=== PATIENT | female | born 1965 | race Caucasian/White ===

== ENCOUNTER 2017-11-18 04:10 | Emergency (ER) | payer SELFPAY ==
[~2017-11-18] VITALS: Ht 154.9 cm; Wt 90.7 kg
[2017-11-18 04:27] VITALS: BP 150/88
--- NOTE | 2017-11-18 04:53 | NUR ---
CAME IN WITH THE C/O COUGH SINCE YESTERDAY.
--- NOTE | 2017-11-18 05:00 | NUR ---
Patient being evaluated by physician
[2017-11-18 05:58] VITALS: BP 138/81
--- NOTE | 2017-11-18 05:58 | NUR ---
Patient discharged with v/s stable. Written and verbal after care instructions given and explained BY DR. ALLEN. Patient alert, oriented and verbalized understanding of instructions. Ambulatory with steady gait. All questions addressed prior to discharge. ID band removed. Patient advised to follow up with PMD. Rx AUGMENTIN 875MG.PROMETHAZINE DM 6.25MG. of given. Patient educated on indication of medication including possible reaction and side effects. Opportunity to ask questions provided and answered.
== END 2017-11-18 05:58 | disposition home or self-care (01) ==
LOC: MED 04:10
DX: J20.9 Acute bronchitis, unspecified (principal)
CPT/HCPCS: 99283

== ENCOUNTER 2017-11-19 20:13 | Emergency (ER) | payer SELFPAY ==
[~2017-11-19] VITALS: Ht 154.9 cm; Wt 90.7 kg
[2017-11-19 20:41] VITALS: BP 146/85
--- NOTE | 2017-11-19 20:47 | NUR ---
EKG COMPLETED IN [facility] BY PEDRITO CRAWLEY; GIVEN TO ER MD DR ALLEN
--- NOTE | 2017-11-19 20:49 | NUR ---
PT PROVIDED URINE CUP
--- NOTE | 2017-11-19 20:51 | NUR ---
pt to lobby awaiting room for MSE. VSS.
--- NOTE | 2017-11-19 23:30 | NUR ---
PATIENT PRESENTS TO ED WITH CP W/ COUGH X 2 DAYS; PT WAS HERE YDAY AND WAS DX W/ BRONCHITIS; PT RETURN TO ER D/T CONSTANT PAIN WHEN COUGH; PT DENIES N/V/D; SKIN IS PINK/WARM/DRY; AAOX4 WITH EVEN AND STEADY GAIT; LUNGS CLEAR BL; HR EVEN AND REGULAR; PT DENIES ANY PATIENT STATES PAIN OF 4/10 AT THIS TIME; VSS; PATIENT POSITIONED FOR COMFORT; HOB ELEVATED; BEDRAILS UP X2; BED DOWN. ER MD MADE AWARE OF PT STATUS.
--- NOTE | 2017-11-19 23:33 | NUR ---
Patient to OF4. RN evaluating patient.
[2017-11-20] MEDS ORDERED: NACL 0.9% 1,000 ML IV ONE (00:55)
[2017-11-20] MEDS ORDERED: KETOROLAC 30 MG/ML VIAL IVP ONE (00:55)
[2017-11-20] MEDS ORDERED: cefTRIAXone 1,000 MG VIAL ONE (01:14)
--- NOTE | 2017-11-20 01:29 | NUR ---
Patient appears to be resting comfortably in bed. Vital Signs within normal limits. Respirations even and unlabored.
--- NOTE | 2017-11-20 01:37 | NUR ---
IV removed, catheter intact and site benign. Applied folded 4x4 gauze and tape to stop bleeding.
[2017-11-20 01:46] VITALS: BP 146/85
--- NOTE | 2017-11-20 01:46 | NUR ---
Patient discharged with v/s stable. Written and verbal after care instructions given and explained. Patient verbalized understanding. Ambulatory with steady gait. All questions addressed prior to discharge. Advised to follow up with PMD. DISCHARGED BY DR ALLEN
== END 2017-11-20 01:46 | disposition home or self-care (01) ==
LOC: MED 20:13
DX: J20.9 Acute bronchitis, unspecified (principal)
CPT/HCPCS: 96365; 96375; 99284; J0696; J1885; J7030; J7060

== ENCOUNTER 2017-11-21 03:30 | Emergency (ER) | payer SELFPAY ==
[~2017-11-21] VITALS: Ht 157.5 cm; Wt 98.1 kg
[2017-11-21 03:45] VITALS: BP 158/85
--- NOTE | 2017-11-21 04:04 | NUR ---
52/F CAME IN WITH C/O RT BREAST PAIN, ACUTE ONSET, NO TRAUMA/INJURY. DENIES DISCHARGE . PT STATES "IT HURTS WHEN I COUGH OR LAY DOWN ON IT" PT REPORTS SHE WAS SEEN YESTERDAY IN ER, DX: BRONCHITIS, GIVEN ATB RX. PT REPORTS SHE IS TAKING RX AT HOME, REPORTS RELIEF OF SYMPTOMS. DENIES OTHER PMH/RX/OTC
--- NOTE | 2017-11-21 06:00 | NUR ---
Patient appears to be resting comfortably in bed. Vital Signs within normal limits. Respirations even and unlabored.
[2017-11-21 06:58] VITALS: BP 115/71
== END 2017-11-21 06:45 | disposition home or self-care (01) ==
LOC: MED 03:30
DX: N64.4 Mastodynia (principal)
CPT/HCPCS: 71010; 99283; Q0092

== ENCOUNTER 2017-11-22 00:33 | Emergency (ER) | payer SELFPAY ==
[~2017-11-22] VITALS: Ht 154.9 cm; Wt 117.9 kg
[2017-11-22 00:34] VITALS: BP 116/81
--- NOTE | 2017-11-22 00:40 | NUR ---
TO LOBBY VIA W/C, VS STABLE NO BLEEDING AT THIS TIME, A/W FOR BED ERMD NOTED
--- NOTE | 2017-11-22 03:50 | NUR ---
52/F CAME IN W C/O UNCONTROLLED NOSEBLEED X 2300 YESTERDAY S/P FALL FROM BED AND HITTING NOSE ON . DENIES LOC, SMALL CUT NOTED ON LT INNER EYE, DENIES VISUAL DISTURBANCES, PHOTOSENSITIVITY, N/V, LIGHTHEADEDNESS/DIZZINESS. BLEEDING IN MODERATE AMOUNT, PT INSTRUCTED TO KEEP PRESSURE. DENIES ANY PAIN AT THIS TIME.
--- NOTE | 2017-11-22 05:00 | NUR ---
LESS BLEEDING NOTED, PT STABLE AT THIS TIME. RESTING ON CHAIR WITH NO ACUTE DISTRESS
[2017-11-22] MEDS: PHENYLEPHRINE 0.25% 15 ML BTL NS ONE ×2 (06:13→06:24)
[2017-11-22] MEDS ORDERED: PHENYLEPHRINE 1% 15 ML BTL NS ONE (06:18)
[2017-11-22 07:24] VITALS: BP 124/86
--- NOTE | 2017-11-22 07:24 | NUR ---
Patient discharged with v/s stable. Written and verbal after care instructions given and explained. Patient verbalized understanding. Ambulatory with steady gait. All questions addressed prior to discharge. Advised to follow up with PMD.
== END 2017-11-22 07:24 | disposition home or self-care (01) ==
LOC: MED 00:33
DX: R04.0 Epistaxis (principal); W06.XXXA Fall from bed, initial encounter; Y93.89 Activity, other specified; Y92.89 Other specified places as the place of occurrence of the external cause; Y99.8 Other external cause status
CPT/HCPCS: 99283

== ENCOUNTER 2017-11-25 04:05 | Emergency (ER) | payer SELFPAY ==
[~2017-11-25] VITALS: Ht 154.9 cm; Wt 100.0 kg
[2017-11-25 04:42] VITALS: BP 146/94
--- NOTE | 2017-11-25 05:47 | NUR ---
PT AMBULATED TO ER OF
--- NOTE | 2017-11-25 05:48 | NUR ---
PATIENT PRESENTS TO ED WITH CONGESTION X 1 DAY . PT DENIES N/V/D; SKIN IS PINK/WARM/DRY; AAOX4 WITH EVEN AND STEADY GAIT; LUNGS CLEAR BL; HR EVEN AND REGULAR; PT DENIES ANY FEVER, CP, OR COUGH AT THIS TIME; PATIENT STATES PAIN OF 0/10 AT THIS TIME; VSS; PATIENT POSITIONED FOR COMFORT; HOB ELEVATED; BEDRAILS UP X2; BED DOWN. ER MD MADE AWARE OF PT STATUS.
--- NOTE | 2017-11-25 07:28 | NUR ---
ASSUMED PATIENT CARE, AWAITING MSE BY PROVIDER. PATIENT UPDATED ACCORDINGLY.
[2017-11-25] MEDS ORDERED: DEXAMETHASONE 10 MG/ML VIAL IM ONE (07:45)
[2017-11-25] MEDS ORDERED: cefTRIAXone 1,000 MG in LIDOCAINE 1% ***ER ONLY *** 2.1 ML IM ONE (07:45)
[2017-11-25] MEDS ORDERED: ALBUTEROL SULFATE/IPRATROPIU 3 ML SOL IH ONE (07:45)
[2017-11-25] MEDS ORDERED: cefTRIAXone 1,000 MG VIAL ONE (08:13)
[2017-11-25 09:52] VITALS: BP 133/87
--- NOTE | 2017-11-25 09:53 | NUR ---
DISPO AND MEDICAL DECISION MAKING DC HOME WITH INSTRUCTIONS AND PRESCRIPTIONS. PATIENT VERBALIZING RELIEF FROM SYMPTOMS. VSWNL, NO DISTRESS.
== END 2017-11-25 09:53 | disposition home or self-care (01) ==
LOC: MED 04:05
DX: J11.1 Influenza due to unidentified influenza virus with other respiratory manifestations (principal); J40 Bronchitis, not specified as acute or chronic
CPT/HCPCS: 94640; 96372; 99284; J0696; J1100; J7620

== ENCOUNTER 2018-02-19 06:55 | Emergency (ER) | payer SELFPAY ==
[~2018-02-19] VITALS: Ht 154.9 cm; Wt 98.0 kg
[2018-02-19 06:57] VITALS: BP 152/90
--- NOTE | 2018-02-19 06:57 | NUR ---
Pt to room 3.
--- NOTE | 2018-02-19 07:05 | NUR ---
52 YO F BIB self w/ c/o difficulty breathing that began at 0530 this morning. A&O x 4. GCS 15. Pt denies past med hx. Pt denies pain at this time. Lung sounds clear bilaterally. Respirations even and unlabored. CMS intact. ER MD Palmer aware of pt status. Pt needs met at this time. Will continue to monitor.
--- NOTE | 2018-02-19 07:20 | NUR ---
O2 given because o2 saturation 93%. Will continue to monitor.
[2018-02-19 08:08] LABS: BASOPHILS # (AUTO) 0.4 K/uL (0.00-0.22); BASOPHILS % (AUTO) 4.9 % (0.0-2.0); EOSINOPHILS # (AUTO) 0.1 K/uL (0-0.4); EOSINOPHILS % (AUTO) 1.1 % (0.0-4.0); HEMATOCRIT 39.9 % (36-48); HEMOGLOBIN 12.7 g/dL (12.0-16.0); LYMPHOCYTES # (AUTO) 1.6 K/uL (2.5-16.5); LYMPHOCYTES % (AUTO) 21.3 % (20.5-51.1); MEAN CORPUSCULAR HEMOGLOBIN 25 pg (27-31); MEAN CORPUSCULAR HGB CONC 32 g/dL (33-37); MEAN CORPUSCULAR VOLUME 78.1 fL (80-94); MONOCYTES # (AUTO) 0.3 K/uL (0.8-1.0); NEUTROPHILS # (AUTO) 5.1 K/uL (1.8-7.7); NEUTROPHILS % (AUTO) 68.7 % (42.2-75.2); PLATELET COUNT (AUTO) 203 K/uL (140-450); RED BLOOD CELL COUNT(AUTO) 5.11 MIL/uL (4.20-5.40); WHITE BLOOD COUNT (AUTO) 7.5 K/uL (4.8-10.8)
[2018-02-19 08:16] LABS: ANION GAP 18.4 (8-16); CARBON DIOXIDE 22.7 mmol/L (21-32); CREATININE 0.7 mg/dL (0.6-1.3); POTASSIUM 4.1 mmol/L (3.5-5.1)
[2018-02-19 08:22] LABS: ALBUMIN 3.3 g/dL (3.4-5.0); TOTAL BILIRUBIN 0.3 mg/dL (0.0-1.0)
[2018-02-19] MEDS ORDERED: ALBUTEROL 0.083% 2.5 MG/3 ML NEBU INH ONE (08:35)
--- NOTE | 2018-02-19 08:42 | NUR ---
ADMITTING DX: DIFFICULTY BREATHIG HX: BRONCHITIS DENIES ASTHMA COPD CHF LOC AWAKE AND ALERT RESPONSIVE TO SECURITY INTERN VERBAL COMMANDS SKIN TONE PINK SITTING UP ON GURNEY EDUCATION PROVIDED TO PATIENT WITH ACKNOWLEDGEMENT ON HHN THERAPY AND RESPIRATORY DRUG HHN THERAPY GIVEN ORDERED ENCOURAGED PATIENT FOR INTERMITTENT DEEP BREATH AND COUGH TOLERATED THERAPY WELL WITHOUT ADVERSE REACTION NOTED PLACED PATIENT BACK ON SUPPLEMENTAL OXYGEN AT 2 LPM VIA NC
[2018-02-19] MEDS ORDERED: PIPERACILLIN/TAZOBACTAM 3.375 GM in DEXTROSE 5% 50 ML IV ONE (09:25)
[2018-02-19] MEDS ORDERED: VANCOMYCIN 1,000 MG in DEXTROSE 5% 250 ML IV ONE (09:25)
[2018-02-19 09:30] VITALS: BP 152/90
== END 2018-02-19 09:31 | disposition home or self-care (01) ==
LOC: MED 06:55
DX: J40 Bronchitis, not specified as acute or chronic (principal); R79.89 Other specified abnormal findings of blood chemistry
CPT/HCPCS: 36415; 71045; 80053; 83880; 85025; 94640; 99285; J7613; Q0092

== ENCOUNTER 2018-06-01 17:50 | Emergency (ER) | payer SELFPAY ==
[~2018-06-01] VITALS: Ht 157.5 cm; Wt 98.0 kg
[2018-06-01 18:12] VITALS: BP 157/88
[2018-06-01 20:28] VITALS: BP 148/89
== END 2018-06-01 20:28 | disposition home or self-care (01) ==
LOC: MED 17:50
DX: J20.9 Acute bronchitis, unspecified (principal)
CPT/HCPCS: 99283

== ENCOUNTER 2018-06-19 05:40 | Emergency (ER) | payer SELFPAY ==
[~2018-06-19] VITALS: Ht 157.5 cm; Wt 98.0 kg
[2018-06-19 05:43] VITALS: BP 125/87
--- NOTE | 2018-06-19 05:43 | NUR ---
to bed # 11 ambulatory, report given Linda Oneil
--- NOTE | 2018-06-19 06:00 | NUR ---
PT BIB SELF C/O SUDDEN ONSET OF SOB, RR EVEN AND UNLABORED, BL BS CLEAR THROUGHOUT. PT STATES SHE WAS SEEN IN ER LAST WEEK FOR BRONCHITIS WAS PRESCRIBED ABX AND COUGH SYRUP, STATES SHE HAD RELIEF BUT WOKE UP THIS AM W/ SOB. PT IS AWAKE , AND ACTING APPROPRIATE, SPEAKING FULL CLEAR SENTENCES. PMH BRONCHITIS NKDA
--- NOTE | 2018-06-19 06:25 | NUR ---
XRAY AT BEDSIDE.
--- NOTE | 2018-06-19 06:28 | NUR ---
DR BALLARD AT BEDSIDE EVALUATING PT.
[2018-06-19] MEDS ORDERED: methylPREDNISolone SS 125 MG in WATER STERILE 2 ML IV ONE (06:35)
[2018-06-19 06:55] LABS: BASOPHILS # (AUTO) 0.1 K/uL (0.00-0.22); BASOPHILS % (AUTO) 0.7 % (0.0-2.0); EOSINOPHILS # (AUTO) 0.1 K/uL (0-0.4); EOSINOPHILS % (AUTO) 1.4 % (0.0-4.0); HEMOGLOBIN 12.4 g/dL (12.0-16.0); LYMPHOCYTES # (AUTO) 2.3 K/uL (2.5-16.5); LYMPHOCYTES % (AUTO) 24.4 % (20.5-51.1); MEAN CORPUSCULAR HEMOGLOBIN 25 pg (27-31); MEAN CORPUSCULAR HGB CONC 32 g/dL (33-37); MEAN CORPUSCULAR VOLUME 76.7 fL (80-94); MONOCYTES # (AUTO) 0.5 K/uL (0.8-1.0); MONOCYTES % (AUTO) 5.2 % (1.7-9.3); NEUTROPHILS # (AUTO) 6.3 K/uL (1.8-7.7); NEUTROPHILS % (AUTO) 68.3 % (42.2-75.2); PLATELET COUNT (AUTO) 212 K/uL (140-450); RED BLOOD CELL COUNT(AUTO) 5.08 MIL/uL (4.20-5.40); RED CELL DISTRIBUTION WIDTH 16.8 % (11.6-13.7); WHITE BLOOD COUNT (AUTO) 9.3 K/uL (4.8-10.8)
[2018-06-19 07:12] LABS: ALBUMIN 3.4 g/dL (3.4-5.0); ANION GAP 14.8 (8-16); CARBON DIOXIDE 23.1 mmol/L (21-32); CREATININE 0.7 mg/dL (0.6-1.3); POTASSIUM 3.9 mmol/L (3.5-5.1); TOTAL BILIRUBIN 0.4 mg/dL (0.0-1.0)
--- NOTE | 2018-06-19 07:39 | NUR ---
REPORT RECIEVED FROM KRIS ALBARRAN, PT RESTING COMFORTABLY, NO C/O SOB OR PAIN AT THIS TIME, WILL CONTINUE TO MONITOR
[2018-06-19 08:28] VITALS: BP 138/98
--- NOTE | 2018-06-19 08:28 | NUR ---
Pt discharge instructions given with prescription of prednisone, information given regarding side effects of medication, vss, instructed to follow up with primary md, pt ambulates with
== END 2018-06-19 08:28 | disposition home or self-care (01) ==
LOC: MED 05:40
DX: R06.02 Shortness of breath (principal); R05 Cough
CPT/HCPCS: 36415; 71045; 80053; 82550; 82553; 83880; 84484; 85025; 85379; 93005; 96374; 99285; J2930; Q0092

== ENCOUNTER 2018-10-01 05:40 | Emergency (ER) | payer SELFPAY ==
[~2018-10-01] VITALS: Ht 157.5 cm; Wt 98.0 kg
[2018-10-01 05:44] VITALS: BP 141/96
--- NOTE | 2018-10-01 05:52 | NUR ---
PT AMBULATED TO ED BED 8, FLU SWAB DONE
--- NOTE | 2018-10-01 06:15 | NUR ---
53/F CAME IN ED, C/O PRODUCTIVE COUGH, X3 DAYS. PT STATED THAT SHE SHOWERED, LEFT HER HAIR WET, WENT TO WORK AND FELT AN EPISODE OF SORE THROAT, RUNNY NOSE, AND CONGESTION 4 DAYS AGO. LUNG SOUNDS CLEAR BL. AOX4, AMBULATORY, RR EVEN AND UNLABORED. DENIES MED HX, RX.
--- NOTE | 2018-10-01 06:44 | NUR ---
Patient being evaluated by physician at bedside.
[2018-10-01] MEDS ORDERED: KETOROLAC 30 MG/ML VIAL IM ONE (06:45)
[2018-10-01] MEDS ORDERED: cefTRIAXone 1,000 MG in LIDOCAINE MPF 1% - 5 mL VIAL 2.1 ML IM ONE (06:45)
[2018-10-01] MEDS ORDERED: cefTRIAXone 1,000 MG VIAL ONE (06:59)
[2018-10-01] MEDS ORDERED: LIDOCAINE 1% 50 ML ONE (07:00)
[2018-10-01 07:25] VITALS: BP 137/93
--- NOTE | 2018-10-01 07:25 | NUR ---
Patient discharged with v/s stable. Written and verbal after care instructions given and explained. Patient alert, oriented and verbalized understanding of instructions. Ambulatory with steady gait. All questions addressed prior to discharge. ID band removed. Patient advised to follow up with PMD. Rx of GUAIATUSSIN, NAPRSYN, AND AZIYTHROMYZIN given. Patient educated on indication of medication including possible reaction and side effects. Opportunity to ask questions provided and answered.
== END 2018-10-01 07:25 | disposition home or self-care (01) ==
LOC: MED 05:40
DX: J18.9 Pneumonia, unspecified organism (principal)
CPT/HCPCS: 36415; 71045; 87804; 96372; 99285; J0696; J1885; J2001; J7030; Q0092

== ENCOUNTER 2021-03-08 08:46 | Emergency (ER) | payer OTHER ==
[~2021-03-08] VITALS: Ht 162.6 cm; Wt 104.3 kg
[~2021-03-08 08:46] MED LIST: ASPI-1129 PO; ATOR10TA PO; BENA20TA PO; ERGO400T3 PO; FURO-570 PO; GLIP10TE PO; METF500T2 PO; METO25TE2 PO; PIOG15TA84 PO
[2021-03-08 08:48] VITALS: BP 150/100
[2021-03-08 09:31] LABS: BASOPHILS # (AUTO) 0.1 K/uL (0.00-0.22); BASOPHILS % (AUTO) 1.1 % (0.0-2.0); EOSINOPHILS # (AUTO) 0.1 K/uL (0-0.4); EOSINOPHILS % (AUTO) 1.6 % (0.0-4.0); HEMOGLOBIN 13.8 g/dL (12.0-16.0); LYMPHOCYTES % (AUTO) 23.7 % (20.5-51.1); MEAN CORPUSCULAR HEMOGLOBIN 30 pg (27-31); MEAN CORPUSCULAR HGB CONC 34 g/dL (33-37); MEAN CORPUSCULAR VOLUME 88.2 fL (80-94); MONOCYTES # (AUTO) 0.4 K/uL (0.8-1.0); MONOCYTES % (AUTO) 4.6 % (1.7-9.3); NEUTROPHILS # (AUTO) 5.9 K/uL (1.8-7.7); PLATELET COUNT (AUTO) 224 K/uL (140-450); RED BLOOD CELL COUNT(AUTO) 4.65 MIL/uL (4.20-5.40); RED CELL DISTRIBUTION WIDTH 14.5 % (11.6-13.7)
[2021-03-08 09:35] LABS: WHITE BLOOD COUNT (AUTO) 8.5 K/uL (4.8-10.8)
[2021-03-08] MEDS ORDERED: FUROSEMIDE 40 MG/4 ML VIAL IVP ONE (09:40)
[2021-03-08 09:43] LABS: ALBUMIN 3.7 g/dL (3.4-5.0); CREATININE 0.9 mg/dL (0.6-1.3); TOTAL BILIRUBIN 0.5 mg/dL (0.0-1.0)
[2021-03-08] MEDS ORDERED: cefTRIAXone 1,000 MG VIAL ONE (09:44)
[2021-03-08 09:47] LABS: ANION GAP 40.8 (8-16)
[2021-03-08] MEDS ORDERED: AZIT250T3 PO (10:32)
[2021-03-08 11:18] VITALS: BP 148/90
== END 2021-03-08 11:18 | disposition home or self-care (01) ==
LOC: MED 08:46
DX: J18.9 Pneumonia, unspecified organism (principal); I11.0 Hypertensive heart disease with heart failure; E11.9 Type 2 diabetes mellitus without complications; Z88.6 Allergy status to analgesic agent; Z79.899 Other long term (current) drug therapy
CPT/HCPCS: 36415; 71045; 80053; 83880; 84484; 85025; 85379; 87040; 93005; 96365; 96375; 99285; J0696; J1940; J7060

== ENCOUNTER 2021-05-31 02:11 | Emergency (ER) | payer OTHER ==
[~2021-05-31] VITALS: Ht 154.9 cm; Wt 108.0 kg
[~2021-05-31 02:11] MED LIST changes: +AZIT250T3 PO
[2021-05-31 02:18] VITALS: BP 108/76
--- NOTE | 2021-05-31 03:02 | NUR ---
55 Y/O FEMALE PT C/O DRY COUGH AND THROAT PAIN. PT STATES "I WOKE UP WITH A SCRATCHY THROAT AND DRY COUGH, AND A THROAT PAIN OF 8/10" . DENIES N/V/D; SKIN IS PINK/WARM/DRY; AAOX4 WITH EVEN AND STEADY GAIT; LUNGS CLEAR BL; HR EVEN AND REGULAR; PT DENIES ANY FEVER, CP, SOB, OR COUGH AT THIS TIME; PATIENT STATES PAIN OF 8/10 AT THIS TIME; VSS; PATIENT POSITIONED FOR COMFORT; HOB ELEVATED; BEDRAILS UP X2; BED DOWN. ER MD MADE AWARE OF PT STATUS. ALLERGY: ACETAMINOPHEN PMH: DENIES
--- NOTE | 2021-05-31 04:05 | NUR ---
COLLECTED STREP SWABS AND SENT TO LAB, HANDED TO CPT DONAVON
[2021-05-31] MEDS ORDERED: DEXAMETHASONE 4 MG/ML VIAL IM ONE (04:50)
[2021-05-31 05:05] VITALS: BP 108/76
== END 2021-05-31 05:05 | disposition home or self-care (01) ==
LOC: MED 02:11
DX: J02.9 Acute pharyngitis, unspecified (principal); E11.9 Type 2 diabetes mellitus without complications; I10 Essential (primary) hypertension; Z88.6 Allergy status to analgesic agent; Z79.82 Long term (current) use of aspirin; Z79.899 Other long term (current) drug therapy
CPT/HCPCS: 87081; 96372; 99283; J1100

== ENCOUNTER 2021-08-09 03:40 | Emergency (ER) | payer OTHER ==
[~2021-08-09] VITALS: Ht 157.5 cm; Wt 104.3 kg
[2021-08-09 03:40] VITALS: BP 123/73
--- NOTE | 2021-08-09 03:43 | NUR ---
TO LOBBY A/W BED AMBULATORY
--- NOTE | 2021-08-09 04:20 | NUR ---
seen and examined by kendrick
--- NOTE | 2021-08-09 04:25 | NUR ---
TO ER BED 6
--- NOTE | 2021-08-09 04:46 | NUR ---
XRAY AT BEDSIDE.
--- NOTE | 2021-08-09 04:50 | NUR ---
PT BIB SELF WITH C/C SORE THROAT. PT REPORTS HER CABLE WEAVER CALLED HER YESTERDAY AND SAID THEY HAVE LABS TO REVIEW WITH HER. PT STATES SHE WOKE UP WITH NON RADIATING CHEST PRESSURE AT 0300, STATING "IT FELT LIKE A PANIC ATTACK THAT RAJENDRA HAD BEFORE." PT REPORTS CALL FROM HER CARDIOLOIST MADE HER NERVOUS. MED HX: HTN, DM, PANIC ATTACKS ALLERGIES: ACETAMINOPHEN
--- NOTE | 2021-08-09 05:00 | NUR ---
LABS DRAWN AND BETTIE SWAB COLLECTED, TAKEN TO LAB AND HAND GIVEN TO DONAVON ENTRY LEVEL LAB TECHNICIAN.
[2021-08-09 05:28] LABS: BASOPHILS # (AUTO) 0.1 K/uL (0.00-0.22); BASOPHILS % (AUTO) 0.8 % (0.0-2.0); EOSINOPHILS # (AUTO) 0.2 K/uL (0-0.4); EOSINOPHILS % (AUTO) 2.2 % (0.0-4.0); HEMOGLOBIN 13.8 g/dL (12.0-16.0); LYMPHOCYTES # (AUTO) 2.9 K/uL (2.5-16.5); LYMPHOCYTES % (AUTO) 27.9 % (20.5-51.1); MEAN CORPUSCULAR HEMOGLOBIN 29 pg (27-31); MEAN CORPUSCULAR HGB CONC 34 g/dL (33-37); MEAN CORPUSCULAR VOLUME 86.9 fL (80-94); MONOCYTES # (AUTO) 0.6 K/uL (0.8-1.0); NEUTROPHILS # (AUTO) 6.6 K/uL (1.8-7.7); NEUTROPHILS % (AUTO) 63.1 % (42.2-75.2); PLATELET COUNT (AUTO) 235 K/uL (140-450); RED BLOOD CELL COUNT(AUTO) 4.72 MIL/uL (4.20-5.40); RED CELL DISTRIBUTION WIDTH 15.5 % (11.6-13.7); WHITE BLOOD COUNT (AUTO) 10.4 K/uL (4.8-10.8)
[2021-08-09 05:38] LABS: ALBUMIN 3.7 g/dL (3.4-5.0); ANION GAP 15.7 (8-16); CARBON DIOXIDE 24.1 mmol/L (21-32); CREATININE 0.9 mg/dL (0.6-1.3); POTASSIUM 3.8 mmol/L (3.5-5.1); TOTAL BILIRUBIN 0.7 mg/dL (0.0-1.0)
--- NOTE | 2021-08-09 07:10 | NUR ---
REPORT GIVEN TO FRANCO ZAMBRANO FOR CONTINUITY OF CARE.
--- NOTE | 2021-08-09 08:34 | NUR ---
LABS WERE DRAWN, SENT TO LAB AND LEFT WITH RAKAN CHAN.
[2021-08-09] MEDS ORDERED: IBUP-2213 PO (10:33)
[2021-08-09 10:35] VITALS: BP 122/67
== END 2021-08-09 10:35 | disposition home or self-care (01) ==
LOC: MED 03:40
DX: F41.0 Panic disorder [episodic paroxysmal anxiety] (principal); Z20.822 Contact with and (suspected) exposure to COVID-19; R07.9 Chest pain, unspecified; E11.9 Type 2 diabetes mellitus without complications; I10 Essential (primary) hypertension; Z88.6 Allergy status to analgesic agent; Z79.899 Other long term (current) drug therapy; Z79.84 Long term (current) use of oral hypoglycemic drugs; Z79.82 Long term (current) use of aspirin
CPT/HCPCS: 36415; 71045; 80053; 83880; 84484; 85025; 87426; 93005; 99285; Q0092

== ENCOUNTER 2022-09-28 05:00 | Emergency (ER) | payer OTHER ==
[~2022-09-28] VITALS: Ht 154.9 cm; Wt 98.0 kg
[~2022-09-28 05:00] MED LIST changes: +IBUP-2213 PO; +METF-1139 PO; -METF500T2 PO
[2022-09-28 05:05] VITALS: BP 114/62
--- NOTE | 2022-09-28 05:05 | NUR ---
TO BED AMBULATORY
--- NOTE | 2022-09-28 05:20 | NUR ---
DR. HUTCHISON AT BEDSIDE
[2022-09-28] MEDS ORDERED: LIDOCAINE 5% 1 EA PATCH TP ONE (05:25)
[2022-09-28] MEDS ORDERED: KETOROLAC 30 MG/ML VIAL IM ONE (05:25)
[2022-09-28 06:47] VITALS: BP 118/64
[2022-09-29] MEDS ORDERED: ACET-8386 PO (05:04)
[2022-09-29] MEDS ORDERED: DIAZ5TAB6 PO (05:15)
== END 2022-09-28 06:47 | disposition home or self-care (01) ==
LOC: MED 05:00
DX: R07.89 Other chest pain (principal); I10 Essential (primary) hypertension; E11.9 Type 2 diabetes mellitus without complications; Z79.4 Long term (current) use of insulin; Z79.899 Other long term (current) drug therapy
CPT/HCPCS: 81002; 96372; 99283; J1885

== ENCOUNTER 2022-09-29 01:46 | Emergency (ER) | payer OTHER ==
[~2022-09-29] VITALS: Ht 154.9 cm; Wt 98.0 kg
[2022-09-29 01:09] VITALS: BP 120/75
--- NOTE | 2022-09-29 03:05 | NUR ---
PT TAKEN TO BED 8
[2022-09-29] MEDS ORDERED: diazePAM 5 MG TAB PO ONE (03:35)
--- NOTE | 2022-09-29 03:40 | NUR ---
PT AMBULATES TO RESTROOM WITH A STEADY GAIT.
[2022-09-29] MEDS ORDERED: ACET-8386 PO (05:04)
[2022-09-29] MEDS ORDERED: DIAZ5TAB6 PO (05:15)
[2022-09-29 05:24] VITALS: BP 118/72
--- NOTE | 2022-09-29 05:24 | NUR ---
Patient discharged with v/s stable. Written and verbal after care instructions given and explained. Patient alert, oriented and verbalized understanding of instructions. Ambulatory with steady gait. All questions addressed prior to discharge. ID band removed. Patient advised to follow up with PMD. Rx of VALIUM given. Patient educated on indication of medication including possible reaction and side effects. Opportunity to ask questions provided and answered.
== END 2022-09-29 05:24 | disposition home or self-care (01) ==
LOC: MED 01:46
DX: S20.20XA Contusion of thorax, unspecified, initial encounter (principal); E11.9 Type 2 diabetes mellitus without complications; I10 Essential (primary) hypertension; Z79.84 Long term (current) use of oral hypoglycemic drugs; Z79.899 Other long term (current) drug therapy; Z88.6 Allergy status to analgesic agent; Z79.82 Long term (current) use of aspirin; W01.0XXA Fall on same level from slipping, tripping and stumbling without subsequent striking against object, initial encounter; Y93.89 Activity, other specified; Y92.89 Other specified places as the place of occurrence of the external cause; Y99.8 Other external cause status
CPT/HCPCS: 71045; 81025; 99283

== ENCOUNTER 2022-10-26 09:55 | Observation (INO) | payer OTHER ==
[~2022-10-26] VITALS: Ht 152.4 cm; Wt 98.9 kg
[~2022-10-26 09:55] MED LIST changes: +DIAZ5TAB6 PO
--- NOTE | 2022-10-26 10:00 | NUR ---
PT RECEIVED, CARE ASSUMED. PT BIB EMS FOR EVALUATION OF SOB, RESO DISTRESS. PLACED PT ON BED, CONNECTED TO TELE MONITOR: ST 154. PLACED PT ON NRB MASK 15L. AWAITING TO BE SEEN BY
[2022-10-26 10:14] VITALS: BP 170/104
[2022-10-26 10:36] LABS: BASOPHILS # (AUTO) 0.1 K/uL (0.00-0.22); EOSINOPHILS # (AUTO) 0.2 K/uL (0-0.4); EOSINOPHILS % (AUTO) 1.9 % (0.0-4.0); HEMOGLOBIN 14.1 g/dL (12.0-16.0); LYMPHOCYTES # (AUTO) 3.2 K/uL (2.5-16.5); LYMPHOCYTES % (AUTO) 29.9 % (20.5-51.1); MEAN CORPUSCULAR HEMOGLOBIN 29 pg (27-31); MEAN CORPUSCULAR HGB CONC 33 g/dL (33-37); MEAN CORPUSCULAR VOLUME 88.6 fL (80-94); MONOCYTES # (AUTO) 0.5 K/uL (0.8-1.0); MONOCYTES % (AUTO) 4.3 % (1.7-9.3); NEUTROPHILS # (AUTO) 6.8 K/uL (1.8-7.7); NEUTROPHILS % (AUTO) 62.9 % (42.2-75.2); PLATELET COUNT (AUTO) 228 K/uL (140-450); RED BLOOD CELL COUNT(AUTO) 4.85 MIL/uL (4.20-5.40); RED CELL DISTRIBUTION WIDTH 15.2 % (11.6-13.7); WHITE BLOOD COUNT (AUTO) 10.8 K/uL (4.8-10.8)
[2022-10-26 10:46] LABS: ALBUMIN 3.4 g/dL (3.4-5.0); ANION GAP 18.4 (8-16); CARBON DIOXIDE 21.2 mmol/L (21-32); CREATININE 0.9 mg/dL (0.6-1.3); POTASSIUM 3.6 mmol/L (3.5-5.1); TOTAL BILIRUBIN 0.7 mg/dL (0.0-1.0)
[2022-10-26] MEDS ORDERED: FUROSEMIDE 40 MG/4 ML VIAL IVP ONE (11:25)
[2022-10-26] MEDS ORDERED: NACL 0.9% 1,000 ML IV ONE (11:35)
[2022-10-26] MEDS ORDERED: cefTRIAXone 1,000 MG VIAL ONE (11:40)
[2022-10-26] MEDS ORDERED: DOXYCYCLINE 100 MG VIAL IV ONE (11:40)
[2022-10-26] MEDS: DOXYCYCLINE 100 MG in DEXTROSE 5% 100 ML IV SCH ×2 (11:45→12:20)
--- NOTE | 2022-10-26 11:50 | NUR ---
INSERTED 22G IV TO LEFT WRIST. PT SITTING IN BED CALM, RELAXED AT THIS TIME. PT STATES SHE FEELS BETTER. NOTED V/S. WILL CONTINUE TO MONITOR
--- NOTE | 2022-10-26 12:18 | NUR ---
PT PLACED ON 8L NC W BUBBLE HUMIDIFIER TOLERATING WELL. FRANCO DONALDSON NOTIFIED. SPO2 99%, HR 125, RR 24. WILL CONTINUE TO MONITOR.
--- NOTE | 2022-10-26 13:25 | NUR ---
PT SITTING IN BED ANXIOUS. NOTED: OXYGEN LEVEL DROPS TO 89% ON ROOM AIR. PLACED ON 3LPM O2 VIA NC. UPDATED ALL INFO. WILL CONTINUE TO MONITOR
[2022-10-26] MEDS ORDERED: MORPHINE SULFATE 2 MG/ML SYR IVP PRN (14:00)
[2022-10-26] MEDS ORDERED: ONDANSETRON 4 MG/2 ML VIAL IVP PRN (14:00)
[2022-10-26] MEDS ORDERED: LORazepam 2 MG/ML VIAL IVP PRN (14:00)
[2022-10-26] MEDS ORDERED: ACETAMINOPHEN 325 MG TAB PO PRN (14:00)
[2022-10-26] MEDS: AZITHROMYCIN 500 MG in DEXTROSE 5% 250 ML IV SCH (15:19)
[2022-10-26] MEDS ORDERED: CYCL-657 PO (19:48)
[2022-10-26] MEDS ORDERED: GLIP10TA12 PO (19:48)
--- NOTE | 2022-10-26 20:23 | NUR ---
PT SITTING UP RESTING AND TALKING WITH ROOMATE. SP02 99% 11L A&OX4. PT IS ADMITTED TO HOSPITAL. IS ON HOLDING TILL BED AVAIL ON FLOOR. DENIES PAIN SOB . PT ON BEDSIDE DITCH INSPECTOR. BED AT LOWEST LEVEL SIDE RAILS UPX1 ACETAMINOPHEN HTN
--- NOTE | 2022-10-26 20:42 | NUR ---
GAVE REPORT SENTHIL GAMEZ TO TELE.
[2022-10-26 21:00] VITALS: BP 102/62
--- NOTE | 2022-10-26 21:00 | NUR ---
RECEIVED REPORT FROM ER NURSE BREDNAN FOR CONTINUITY OF CARE. PATIENT IS A&O X4. PATIENT IS ON NC 6L, BREATHING IS NORMAL WITH SYMMETRICAL RISE AND FALL OF CHEST. PATIENT'S IV IS A 22G LEFT HAND, NO FLUIDS RUNNING AT THIS TIME (SALINE LOCKED). PATIENT IS ABLE TO AMBULATE AROUND THE ROOM WITHOUT ASSISTANCE. ADMISSION VITALS WERE: BP 102/62, HR 104, O2 99%, RR 18, TEMP 96.6. BED IS IN LOWEST POSITION, WHEELS LOCKED, CALL LIGHT IN PLACE. WILL CONTINUE TO OBSERVE PATIENT.
--- NOTE | 2022-10-26 21:00 | NUR ---
Patient will be admitted to care of DR THORPE. Admited to TELE. Will go to [id number]. Belongings list completed. Report to SENTHIL GAMEZ .
--- NOTE | 2022-10-26 21:28 | NUR ---
The patient's care was reviewed and supervised by Janet Mitchell RN.
--- NOTE | 2022-10-26 23:30 | NUR ---
PHOENIX FROM RT ASSESSED THE PATIENT'S BREATHING. PATIENT'S SATURATION WAS 99% AT 6L AND THEN AT 5L. PHOENIX LOWERED PATIENT TO 3L. PATIENT IS BREATHING NORMALLY WITH SYMMETRICAL RISE AND FALL OF CHEST. WILL CONTINUE TO MONITOR PATIENT'S BREATHING.
[2022-10-27] VITALS: BP 107/64
--- NOTE | 2022-10-27 02:00 | NUR ---
LOOKED IN ON PATIENT. PATIENT WAS SLEEPING, LYING SUPINE ON HER RIGHT SIDE. BREATHING WAS NORMAL WITH SYMMETRICAL RISE AND FALL OF CHEST. WILL CONTINUE TO OBSERVE PATIENT.
[2022-10-27 04:00] VITALS: BP 106/70
--- NOTE | 2022-10-27 05:00 | NUR ---
LOOKED IN ON PATIENT. PATIENT WAS SLEEPING, LYING SUPINE ON HER SIDE. BREATHING WAS NORMAL WITH SYMMETRICAL RISE AND FALL OF CHEST. WILL CONTINUE TO OBSERVE PATIENT.
[2022-10-27 05:21] LABS: BASOPHILS # (AUTO) 0.1 K/uL (0.00-0.22); BASOPHILS % (AUTO) 0.6 % (0.0-2.0); EOSINOPHILS # (AUTO) 0.3 K/uL (0-0.4); EOSINOPHILS % (AUTO) 2.8 % (0.0-4.0); HEMATOCRIT 37.3 % (36-48); HEMOGLOBIN 12.7 g/dL (12.0-16.0); LYMPHOCYTES # (AUTO) 2.7 K/uL (2.5-16.5); LYMPHOCYTES % (AUTO) 26.3 % (20.5-51.1); MEAN CORPUSCULAR HEMOGLOBIN 30 pg (27-31); MEAN CORPUSCULAR HGB CONC 34 g/dL (33-37); MEAN CORPUSCULAR VOLUME 87.5 fL (80-94); MONOCYTES # (AUTO) 0.7 K/uL (0.8-1.0); MONOCYTES % (AUTO) 6.5 % (1.7-9.3); NEUTROPHILS # (AUTO) 6.4 K/uL (1.8-7.7); NEUTROPHILS % (AUTO) 63.8 % (42.2-75.2); PLATELET COUNT (AUTO) 196 K/uL (140-450); RED BLOOD CELL COUNT(AUTO) 4.26 MIL/uL (4.20-5.40); RED CELL DISTRIBUTION WIDTH 15.2 % (11.6-13.7); WHITE BLOOD COUNT (AUTO) 10.1 K/uL (4.8-10.8)
[2022-10-27 05:43] LABS: ALBUMIN 3.1 g/dL (3.4-5.0); ANION GAP 10.1 (8-16); CARBON DIOXIDE 30.2 mmol/L (21-32); CREATININE 0.7 mg/dL (0.6-1.3); MAGNESIUM 1.7 mg/dL (1.8-2.4); PHOSPHORUS 3.9 mg/dL (2.5-4.9); POTASSIUM 4.3 mmol/L (3.5-5.1); TOTAL BILIRUBIN 0.6 mg/dL (0.0-1.0)
--- NOTE | 2022-10-27 07:00 | NUR ---
PATIENT RUNNING NS 3ML TKO, TO PREPARE FOR PATIENT'S IVPB ANTIBIOTICS THAT ARE DUE IN THE MORNING. PATIENT'S IV IS STILL PATENT. PATIENT IS AWAKE SITTING UP IN BED. BREATHING IS NORMAL WITH SYMMETRICAL RISE AND FALL OF CHEST. WILL CONTINUE TO OBSERVE PATIENT.
--- NOTE | 2022-10-27 07:30 | NUR ---
ENDORSED TO DAY SHIFT NURSE BENITA FOR CONTINUITY OF CARE. PATIENT IS STABLE.
[2022-10-27 08:00] VITALS: BP 104/74
--- NOTE | 2022-10-27 10:31 | NUR ---
PATIENT HAS BEEN SCREENED AND CATEGORIZED MODERATE NUTRITION RISK. PATIENT WILL BE SEEN WITHIN 3-5 DAYS OF ADMISSION. 10/26/22-10/31/[address]
[2022-10-27] MEDS ORDERED: FUROSEMIDE 100 MG/10 ML VIAL IV SCH (11:25)
[2022-10-27] MEDS ORDERED: MAG SULF 2000 MG/WATER PREMIX 50 ML IV SCH (11:40)
[2022-10-27 12:00] VITALS: BP 110/68
[2022-10-27] MEDS ORDERED: AZIT250T4 PO (13:26)
[2022-10-27] MEDS ORDERED: CEPH-588 PO (13:26)
[2022-10-27] MEDS: AZITHROMYCIN 500 MG in DEXTROSE 5% 250 ML IV SCH (15:00)
[2022-10-27 15:39] VITALS: BP 124/69
[2022-10-27 16:00] VITALS: BP 106/70
--- NOTE | 2022-10-27 18:59 | NUR ---
Pt. DC HOME IN STABLE CONDITION. PICKED UP BY .
--- NOTE | 2022-10-29 15:23 | NUR ---
LATE ENTRY- DOXYCYCLINE DISCONTINUED AT 2100.
== END 2022-10-27 18:30 | disposition home or self-care (01) ==
LOC: MED 09:55 → MTU 14:00
PROVIDERS: ADMIT Hospitalist; ATTEND Hospitalist
DX: J96.01 Acute respiratory failure with hypoxia (principal); Z20.822 Contact with and (suspected) exposure to COVID-19; J18.9 Pneumonia, unspecified organism; I11.0 Hypertensive heart disease with heart failure; I50.9 Heart failure, unspecified; E87.20 Acidosis, unspecified; E11.9 Type 2 diabetes mellitus without complications; E78.5 Hyperlipidemia, unspecified; Z79.899 Other long term (current) drug therapy
CPT/HCPCS: 36415; 71045; 80053; 83605; 83735; 83880; 84100; 84484; 85025; 87040; 87081; 87426; 87804; 93005; 94640; 94760; 96365; 96366; 96367; 96368; 96375; 99291; G0378; J0456; J0696; J1940; J3475; J3490; J7060

== ENCOUNTER 2023-03-26 04:25 | Inpatient (IN) | payer OTHER ==
[~2023-03-26] VITALS: Ht 154.9 cm; Wt 98.0 kg
[~2023-03-26 04:25] MED LIST changes: -AZIT250T3 PO; +AZIT250T4 PO; +CEPH-588 PO; +CYCL-657 PO; +GLIP10TA12 PO
[2023-03-26 04:34] VITALS: BP 128/78
--- NOTE | 2023-03-26 04:45 | NUR ---
Pt to bed 11.
--- NOTE | 2023-03-26 04:53 | NUR ---
Patient resting in bed, A/Ox4, chest rise and fall symmetrical, no c/o pain or s/s of distress, on monitor.
--- NOTE | 2023-03-26 05:13 | NUR ---
Samuel martinez in [facility] - 03/26/23 at 0513 by [id number] Xray at bedside.
--- NOTE | 2023-03-26 05:13 | NUR ---
medical technologist performing x-ray at bedside.
[2023-03-26 05:14] LABS: BASOPHILS # (AUTO) 0.1 K/uL (0.00-0.22); EOSINOPHILS # (AUTO) 0.2 K/uL (0-0.4); EOSINOPHILS % (AUTO) 1.9 % (0.0-4.0); HEMOGLOBIN 12.7 g/dL (12.0-16.0); LYMPHOCYTES # (AUTO) 2.2 K/uL (2.5-16.5); MEAN CORPUSCULAR HEMOGLOBIN 29 pg (27-31); MEAN CORPUSCULAR HGB CONC 34 g/dL (33-37); MEAN CORPUSCULAR VOLUME 86.8 fL (80-94); MONOCYTES # (AUTO) 0.4 K/uL (0.8-1.0); MONOCYTES % (AUTO) 4.1 % (1.7-9.3); NEUTROPHILS # (AUTO) 7.5 K/uL (1.8-7.7); PLATELET COUNT (AUTO) 204 K/uL (140-450); RED BLOOD CELL COUNT(AUTO) 4.38 MIL/uL (4.20-5.40); RED CELL DISTRIBUTION WIDTH 14.6 % (11.6-13.7); WHITE BLOOD COUNT (AUTO) 10.4 K/uL (4.8-10.8)
[2023-03-26 05:30] LABS: ALBUMIN 3.3 g/dL (3.4-5.0); CARBON DIOXIDE 25.2 mmol/L (21-32); CREATININE 0.7 mg/dL (0.6-1.3); POTASSIUM 4.2 mmol/L (3.5-5.1); TOTAL BILIRUBIN 0.6 mg/dL (0.0-1.0)
[2023-03-26] MEDS ORDERED: FUROSEMIDE 100 MG/10 ML VIAL IVP ONE (06:05)
--- NOTE | 2023-03-26 07:00 | NUR ---
Patient resting in bed, A/Ox4, chest rise and fall symmetrical, no c/o pain or s/s of distress, on monitor.
--- NOTE | 2023-03-26 07:10 | NUR ---
Change of shift report given to AM shift nurses Jacob RN and Robina RN. AM shift nurses Jacob RN and Robina RN verbalized understanding of report, no further questions.
[2023-03-26] MEDS ORDERED: MORPHINE SULFATE 2 MG/ML SYR IVP PRN (07:55)
[2023-03-26] MEDS ORDERED: ONDANSETRON 4 MG/2 ML VIAL IVP PRN (07:55)
[2023-03-26] MEDS ORDERED: KCL 20 MEQ IN 100 mL PREMIX 200 ML IV PRN (07:55)
[2023-03-26] MEDS ORDERED: ACETAMINOPHEN 325 MG TAB PO PRN (07:55)
[2023-03-26] MEDS ORDERED: POTASSIUM CHLORIDE 10 MEQ TABER PO PRN (07:55)
[2023-03-26] MEDS ORDERED: MAG SULF 2000 MG/WATER PREMIX 50 ML IV PRN (07:55)
[2023-03-26] MEDS ORDERED: HYDROcodone/APAP 5/325 MG 1 TAB TAB PO PRN (07:55)
[2023-03-26] MEDS ORDERED: MAGNESIUM OXIDE 400 MG TAB PO PRN (07:55)
[2023-03-26] MEDS ORDERED: DOCUSATE SODIUM 100 MG GELCAP PO SCH (09:00)
[2023-03-26] MEDS ORDERED: FUROSEMIDE 100 MG/10 ML VIAL IVP SCH (09:00)
[2023-03-26 09:50] VITALS: BP 112/69
--- NOTE | 2023-03-26 09:50 | NUR ---
PT ARRIVED ONTO UNIT ACCOMPANIED BY ER NURSE. PT IS AWAKE AND ALERT X4, ABLE TO VERBALIZE NEEDS, ABLE TO FOLLOW COMMANDS. CC IS SOB, PT HAS HX OF HTN, CHF, DM. PT IS ON CARDIAC MONITORING, ST AT THIS TIME. PT IS SUPPOSED TO BE ON 2L O2 VIA NC, HOWEVER, PT WAS BROUGHT OVER BY ER NURSE WITHOUT O2. ASKED ER NURSE TO CONNECT PT, WAS TOLD BY ER NURSE "I DIDN'T BRING THE TREE WITH ME TO CONNECT HER SORRY". INFORMED ER NURSE THAT IF PT HAS ORDER TO BE ON O2, PT MUST BE TRANSPORTED WITH O2, NC AND TREE. ER NURSE WENT TO GO AND SPEAK WITH HIS CHARGE NURSE, ARIANNA. PER ER NURSE, ACCORDING TO CHARGE NURSE ARIANNA, " WE DON'T TRANSPORT PATIENT'S WITH THE TREE FOR OXYGEN". INFORMED ER NURSE THAT WITHOUT TREE FOR OXYGEN, PT IS UNABLE TO RECEIVE O2, ALSO, THAT PT SHOULD HAVE BEEN TRANSPORTED WITH PORTABLE O2. ER NURSE STATED "I'LL LET MY CHARGE KNOW". THIS NURSE FOUND A TREE/NOZZLE FOR O2 AND CONNECTED PT. PT STATED "THANK YOU SO MUCH, I DONT KNOW WHY THEY DIDN'T HAVE ME CONNECTED". PT ABD IS NONTENDER, NONDISTENDED WITH BOWEL SOUNDS PRESENT. PT STATES LAST BM WAS YESTERDAY. PT IS CONTINENT OF BOWEL AND BLADDER, ABLE TO AMBULATE INDEPENDENTLY TO REST ROOM. PT HAS FULL ROM TO UPPER AND LOWER EXTREMITIES. SKIN IS WARM, DRY, AND INTACT. PT HAS IV TO L HAND, 22G, SL. VS DONE. MRSA SWAB DONE. CALL LIGHT WITHIN REACH. ALL SAFETY MEASURES IN PLACE.
--- NOTE | 2023-03-26 09:54 | NUR ---
Patient will be admitted to care of MD OLMOS. Admited to TELE. Will go to room 125A. Belongings list completed. Report to BERTO EDOUARD.
--- NOTE | 2023-03-26 10:59 | NUR ---
SPOKE WITH DR OLMOS, BECAUSE PT HAD AN ORDER FOR LASIX 80MG AT 0900. INFORMED DR OLMOS THAT PT HAD RECEIVED LASIX 100MG AT [address] OLMOS, HOLD LASIX DUE AT 0900, PT CAN GET LASIX TONIGHT.
[2023-03-26 12:00] VITALS: BP 110/67
[2023-03-26] MEDS ORDERED: FURO-570 PO (14:07)
[2023-03-26 14:23] VITALS: BP 110/67
--- NOTE | 2023-03-26 14:46 | NUR ---
PT HAS DISCHARGE ORDER IN PLACE. PT MADE AWARE. WENT OVER ALL PAPERWORK WITH PT. PT SIGNED ALL PAPERWORK. PT STATES SHE IS WAITING FOR TO PICK HER UP.
--- NOTE | 2023-03-26 15:20 | NUR ---
PT DISCHARGED HOME WITH . IV REMOVED. IV CATHETER INTACT. ALL BELONGINGS TAKEN UPON DISCHARGE.
== END 2023-03-26 15:15 | disposition home or self-care (01) | DRG 194 ==
LOC: MED 04:25 → MTU 07:55 → OBSVTOIN 07:55 → MMU 08:52
PROVIDERS: ADMIT Student in an Organized Health Care Education/Training Program; ATTEND Student in an Organized Health Care Education/Training Program
DX: I11.0 Hypertensive heart disease with heart failure (principal); J96.01 Acute respiratory failure with hypoxia; D84.9 Immunodeficiency, unspecified; I50.23 Acute on chronic systolic (congestive) heart failure; E78.5 Hyperlipidemia, unspecified; E11.9 Type 2 diabetes mellitus without complications; Z20.822 Contact with and (suspected) exposure to COVID-19; J81.1 Chronic pulmonary edema; E66.9 Obesity, unspecified; Z68.41 Body mass index [BMI] 40.0-44.9, adult; Z88.8 Allergy status to other drugs, medicaments and biological substances
CPT/HCPCS: 36415; 71045; 80053; 83880; 84484; 85025; 85379; 93005; 96365; 99285; J1644; J1940; Q0092

== ENCOUNTER 2023-05-22 05:00 | Emergency (ER) | payer OTHER ==
[~2023-05-22] VITALS: Ht 154.9 cm; Wt 98.0 kg
[2023-05-22 05:00] VITALS: BP_SYST 113; BP_SYST 125; BP_DIAS 55; BP_DIAS 77; PULSE 110; PULSE 86; RESP 18; RESP 19; TEMP 98; O2SAT 100; O2SAT 95
[~2023-05-22 05:00] MED LIST changes: -ATOR10TA PO; -AZIT250T4 PO; -CEPH-588 PO; -CYCL-657 PO; -DIAZ5TAB6 PO; -IBUP-2213 PO; -PIOG15TA84 PO
--- NOTE | 2023-05-22 05:00 | NUR ---
to bed ambulatory
--- NOTE | 2023-05-22 05:41 | NUR ---
X-Ray at bedside.
--- NOTE | 2023-05-22 06:12 | NUR ---
Dr. Evans examining patient.
[2023-05-22] MEDS ORDERED: FUROSEMIDE 40 MG/4 ML VIAL IVP SCH (06:20)
[2023-05-22] MEDS ORDERED: ASPIRIN 81 MG TAB.CHEW PO ONE (06:20)
[2023-05-22 06:51] LABS: BASOPHILS # (AUTO) 0.1 K/uL (0.00-0.22); BASOPHILS % (AUTO) 0.9 % (0.0-2.0); EOSINOPHILS # (AUTO) 0.2 K/uL (0-0.4); EOSINOPHILS % (AUTO) 2.1 % (0.0-4.0); HEMATOCRIT 36.6 % (36-48); HEMOGLOBIN 12.7 g/dL (12.0-16.0); LYMPHOCYTES # (AUTO) 2.1 K/uL (2.5-16.5); LYMPHOCYTES % (AUTO) 22.9 % (20.5-51.1); MEAN CORPUSCULAR HEMOGLOBIN 29 pg (27-31); MEAN CORPUSCULAR HGB CONC 35 g/dL (33-37); MEAN CORPUSCULAR VOLUME 83.6 fL (80-94); MONOCYTES # (AUTO) 0.4 K/uL (0.8-1.0); MONOCYTES % (AUTO) 4.4 % (1.7-9.3); NEUTROPHILS # (AUTO) 6.5 K/uL (1.8-7.7); NEUTROPHILS % (AUTO) 69.7 % (42.2-75.2); PLATELET COUNT (AUTO) 209 K/uL (140-450); RED BLOOD CELL COUNT(AUTO) 4.38 MIL/uL (4.20-5.40); RED CELL DISTRIBUTION WIDTH 15.8 % (11.6-13.7); WHITE BLOOD COUNT (AUTO) 9.4 K/uL (4.8-10.8)
[2023-05-22 07:00] VITALS: TEMP 98.1
--- NOTE | 2023-05-22 07:00 | NUR ---
Pt was medicated as ordered. UA cup provided. Pt stated, she does not have to use the restroom at this time. She stated, "I am going to let the Lasix take effect on me." O2 on going.
[2023-05-22 07:05] LABS: ALBUMIN 3.5 g/dL (3.4-5.0); ANION GAP 17.3 (8-16); CARBON DIOXIDE 23.9 mmol/L (21-32); CREATININE 0.7 mg/dL (0.6-1.3); POTASSIUM 4.2 mmol/L (3.5-5.1); TOTAL BILIRUBIN 0.6 mg/dL (0.0-1.0)
--- NOTE | 2023-05-22 07:13 | NUR ---
Pt OOB to the restroom to obtain UA sample. COVID test collected and in lab.
--- NOTE | 2023-05-22 07:23 | NUR ---
Pt report given to FRANCO Greenberg. Transfer of care at this time.
[2023-05-22 08:46] LABS: APPEARANCE,URINE CLEAR (CLEAR); BILIRUBIN,URINE NEGATIVE (NEGATIVE); BLOOD, URINE NEGATIVE (NEGATIVE); COLOR,URINE YELLOW (YELLOW); LEUKOCYTE ESTERASE ,URINE NEGATIVE (NEGATIVE); NITRITE, URINE NEGATIVE (NEGATIVE); UGLUCOSE NEGATIVE (NEGATIVE)
--- NOTE | 2023-05-22 08:56 | NUR ---
ambulating to br, "it's the water pill"
[2023-05-22 09:12] LABS: CALCIUM OXALATE CRYSTALS,UR None Seen /HPF (None Seen); COARSE GRANULAR CASTS,URINE None Seen /LPF (None Seen); FINE GRANULAR CASTS,URINE None Seen /LPF (None Seen); HYALINE CASTS, URINE None Seen /LPF (None Seen); OTHER CASTS, URINE None Seen /LPF (None Seen); OTHER CRYSTALS,URINE None Seen /HPF (None Seen); RBC,URINE 0 /HPF (0-5); RED BLOOD CELL CASTS,URINE None Seen /LPF (None Seen); TRICHOMONAS,URINE None Seen /HPF (None Seen); TRIPLE PHOSPHATE CRYSTAL,UR None Seen /HPF (None Seen); URIC ACID CRYSTALS,URINE None Seen /HPF (None Seen); URINE AMORPHOUS URATE None Seen /HPF (None Seen); WAXY CASTS,URINE None Seen /LPF (None Seen); YEAST,URINE None Seen /HPF (None Seen)
[2023-05-22 09:44] VITALS: BP 109/54; PULSE 99; RESP 18; O2SAT 100
--- NOTE | 2023-05-22 09:49 | NUR ---
Patient discharged with v/s stable. Written and verbal after care instructions given and explained. Patient verbalized understanding. Ambulatory with to home. All questions addressed prior to discharge. Advised to follow up with PMD.
--- NOTE | 2023-05-22 09:49 | NUR ---
Chart checked and completed. The patient's care was reviewed and supervised by DARREL LYONS RN.
== END 2023-05-22 09:49 | disposition home or self-care (01) ==
LOC: MED 05:00
DX: I11.0 Hypertensive heart disease with heart failure (principal); I50.9 Heart failure, unspecified; I25.10 Atherosclerotic heart disease of native coronary artery without angina pectoris; E11.9 Type 2 diabetes mellitus without complications; E78.5 Hyperlipidemia, unspecified; Z98.890 Other specified postprocedural states; Z79.899 Other long term (current) drug therapy; Z79.84 Long term (current) use of oral hypoglycemic drugs; Z88.6 Allergy status to analgesic agent; Z20.822 Contact with and (suspected) exposure to COVID-19
CPT/HCPCS: 36415; 71045; 80053; 81001; 81025; 83880; 84484; 85025; 87426; 93005; 96374; 99285; J1940